=== PATIENT | female | born 1940 | race Caucasian/White ===

== ENCOUNTER 2016-10-03 21:36 | Observation (INO) | payer OTHER, MEDICARE ==
[~2016-10-03] VITALS: Ht 147.3 cm; Wt 31.8 kg
--- NOTE | 2016-10-03 22:20 | ED GENERAL ADULT ---
History of Present Illness General Chief Complaint: General Adult Stated Complaint: N/V, GENERAL WEAKNESS Source: patient Exam Limitations: no limitations Vital Signs & Intake/Output Vital Signs & Intake/Output Vital Signs Date Time Temp Pulse Resp B/P B/P Pulse O2 O2 Flow FiO2 Mean Ox Delivery Rate 10/033 96.7 116 18 145/90 93 Nasal 2.0L Cannula Allergies Coded Allergies: Penicillins (UNKNOWN 10/03/16) Sulfa (Sulfonamide Antibiotics) (UNKNOWN 10/03/16) Triage Note: PT BIBA FROM HOME. PT BEING SENT TO ED BY HOME HOSPICE NURSE FOR ADMISSION TO THIS HOSPITAL FOR HOSPICE CARE R/T STAGE 4 PANCREATIC CANCER. PRIOR TO ARRIVAL, PT COMPLAINED OF NAUSEA AND WAS MEDICATED BY EMS WITH ZOFRAN 4MG IVP. PT ALSO MEDICATED WITH 50MCG FENTNYL IVP. UPON ARRIVAL TO ED, PT DENIED HAVING ANY COMPLAINTS. Triage Nurses Notes Reviewed? yes Onset: Gradual Duration: week(s):, constant, continues in ED, getting worse Severity: severe Modifying Factors: Improves With: other (pain medication). HPI: Patient presents for evaluation of worsening pain and vomiting secondary to a history of pancreatic cancer. Patient has been unable to take most of her medications due to vomiting. She is currently on hospice at home. However she is unable to take her current medications and is now suffering worsening and severe abdominal pain. Past History Travel History Traveled to [place] past 21 day No Medical History Any Pertinent Medical History? see below for history Cardiovascular: hypertension Cancer(s): pancreatic cancer Surgical History Surgical History: non-contributory Psychosocial History What is your primary language Irish Tobacco Use: Refused to answer Family History Hx Contributory? No Review of Systems Review of Systems Constitutional: Reports: no symptoms. EENTM: Reports: no symptoms. Respiratory: Reports: no symptoms. Cardiovascular: Reports: no symptoms. GI: Reports: abdominal pain, nausea, vomiting. Genitourinary: Reports: no symptoms. Musculoskeletal: Reports: no symptoms. Skin: Reports: no symptoms. Neurological/Psychological: Reports: no symptoms. Hematologic/Endocrine: Reports: no symptoms. Immunologic/Allergic: Reports: no symptoms. All Other Systems: Reviewed and Negative Physical Exam Physical Exam General Appearance: see below Comments: Gen.: Cachectic appearing, well-developed, no acute respiratory distress. Head: Normocephalic, atraumatic. Eyes: Normal inspection bilaterally Ears: Normal inspection bilaterally Nose: Normal inspection Throat/mouth : Tacky mucosa Neck: Supple, full range of motion, no goiter Lungs: Quiet respirations Back: Normal range of motion Abdomen: Soft, diffuse tenderness, nondistended, normal bowel sounds Extremities: Normal range of motion grossly, equal radial pulses, no cyanosis clubbing or edema Neurologic: Cranial nerves grossly intact, speech is clear Skin: warm and dry Psychiatric: Calm, cooperative, no apparent delusions or hallucinations Core Measures ACS in differential dx? No CVA/TIA Diagnosis: No Severe Sepsis Present: No Septic Shock Present: No Progress Differential Diagnoses I considered the following diagnoses in my evaluation of the patient: Intractable pain and vomiting secondary to pancreatic cancer Plan of Care: Current Medications Sig/Danna Start time Last Medication Dose Stop Time Status Admin Acetaminophen 1,000 MG ONCE ONE 10/03 2229 UNVr (Ofirmev) 10/04 2243 N/A 1 UNIT (No Carrier) Levetiracetam 250 MG ONCE ONE 10/03 2229 UNVr (Keppra) 10/03 2230 Initial ED EKG: none Comments: 10/03/2016 10:49:42 PM patient's case discussed with case management and the hospitalist. Departure Departure Disposition: STILL A PATIENT Condition: Stable Clinical Impression Primary Impression: Pancreatic cancer Qualifiers: Pancreatic malignancy location: unspecified Qualified Code: C25.9 - Malignant neoplasm of pancreas, unspecified Secondary Impressions: Intractable abdominal pain Nausea and vomiting Qualifiers: Vomiting type: unspecified Vomiting Intractability: non-intractable Qualified Code: R11.2 - Nausea with vomiting, unspecified Referrals: KHARI LOPEZ,HARVINDER Pulliam (PCP/Family) Departure Forms: Customer Survey General Discharge Information Observation Note Spoke With: AGNES HUERTA MD Patient In: Non-ED OBS Care Area Rationale for Observation: My rational for observation is as follows patient has intractable pain secondary to pancreatic cancer. Nausea and vomiting have complicated her home care preventing her from receiving adequate pain medication for breakthrough pain. In order to control her pain the patient now requires intravenous pain relievers and to control her nausea and vomiting, intravenous antiemetics. Patient's decreased PO intake, her nausea and vomiting and her pain have debilitated her, preventing her from managing activities of daily living. The patient would also have great difficulty in outpatient treatment under the circumstances. This makes her very poor candidate for outpatient management, I feel she now requires hospitalization for management of her symptoms. Given this patient's overall prognosis, she will be comfort measures only. She should have evaluation by hospitalist. Critical Care Note Critical Care Note Critical Care Time: non-applicable
--- NOTE | 2016-10-03 23:24 | History & Physical ---
MARCIO LOPEZ,[facility] 10/03/16 2192: General Information and HPI MD Statement: I have seen and personally examined MELECIO SUAREZ and documented this H&P. The patient is a 76 year old F who presented with a patient stated chief complaint of Abdominal Pain Source of Information: patient, family, old records Exam Limitations: no limitations History of Present Illness: Ms Suarez is a 76 year old female with PMH of Stage IV pancreatic Cancer who presented to the ED complaining of Intractable Nausea, Vomiting and Abdominal Pain. The patient who is on home hospice states her symptoms began over the weekend and have since been present since. She has been unable to tolerate any PO intake. She states her pain is currently rated at a 6/10 in severity. Located in the epigastric area radiating to her flank. Daughter Dali was at bedside during the time of the clinical encounter. Allergies/Medications Allergies: Coded Allergies: Penicillins (UNKNOWN 10/03/16) Sulfa (Sulfonamide Antibiotics) (UNKNOWN 10/03/16) Compliance With Home Meds: UNKNOWN Past History Travel History Traveled to [place] past 21 day No Medical History Cardiovascular: hypertension Cancer(s): pancreatic cancer Surgical History Surgical History: non-contributory Past Family/Social History Psychosocial History Where do you live? Home Who Do You Live With? child Primary Language: Persian Functional Ability ADLs Independent: dressing, eating, toileting, bathing. Review of Systems Review of Systems Constitutional: Reports: weakness. Denies: chills, fever, malaise. Cardiovascular: Denies: chest pain, edema, orthopena, palpitations, peripheral edema. Respiratory: Denies: cough, hemoptysis, orthopnea, short of breath, sputum production, stridor. GI: Reports: abdominal pain, diarrhea, melena, nausea. Denies: bloating, distention , bowel incontinence, bloody stool, changes in stool, vomiting. Genitourinary: Denies: discharge, dysuria, hematuria, hesitation, nocturia. Musculoskeletal: Denies: back pain, gout, joint pain, joint swelling, muscle pain, muscle stiffness. Skin: Denies: change in skin color, change in hair/nails, dryness, erythema, jaundice. Exam & Diagnostic Data Last 24 Hrs of Vital Signs/I&O Vital Signs Date Time Temp Pulse Resp B/P B/P Pulse O2 O2 Flow FiO2 Mean Ox Delivery Rate 10/03 2307 96.7 10/03 2213 96.7 116 18 145/90 93 Nasal 2.0L Cannula Physical Exam General Appearance Alert, Oriented X3, Cooperative, Cachectic, On Supplementatl Oxygen. Skin No Rashes Skin Temp/Moisture Exam: Warm/Dry Sepsis Skin Exam (color): Normal for Ethnicity Cardiovascular Regular Rate, Normal S1, Normal S2 Lungs Clear to Auscultation Abdomen Normal Bowel Sounds, Soft, Tenderness on Light palpation Neurological Normal Speech Extremities No Edema Diagnostic Data EKG Results NA CXR Results NA Assessment/Plan Assessment: Ms Suarez is a 68-year-old female with past medical history of stage IV Pancreatic cancer who has been brought to the emergency department complaining of intractable nausea, vomiting, abdominal pain. Would admit the patient to general medicine floor for a 23 hour observation. #Abdominal Pain secondary to Metastatic Pancreatic cancer. Morphine 2 mg Q2 for pain. Ativan Q2 for anxiety Scopolamine patch Zofran as needed for Nausea. Gentle Hydration @ 75 ml/Hr Fentanyl patch Q 72. Ensure aggressive Bowel regimen, dulcolax and senna. #Diet. Clear liqud diet, to be advanced as tolerated to Regular As Ranked By This Provider Problem List: 1. Nausea and vomiting Qualifiers Vomiting type: unspecified Vomiting Intractability: non-intractable Qualified Code: R11.2 - Nausea with vomiting, unspecified 2. Intractable abdominal pain 3. Pancreatic cancer Qualifiers Pancreatic malignancy location: unspecified Qualified Code: C25.9 - Malignant neoplasm of pancreas, unspecified Core Measures/Miscellaneous Acute Coronary Syndrome ACS Diagnosis: No Cerebrovascular Accident CVA/TIA Diagnosis: No Congestive Heart Failure CHF Diagnosis: No Venous Thromboembolism VTE Risk Factors: Cancer/chemo/oth therapy No Mech VTE prophylaxis d/t: No contraindications No VTE Pharm Prophylaxis d/t: No contraindications VTE Diagnosis: No VTE Type: NONE VTE Confirmed by (Test): NONE Severe Sepsis Severe Sepsis Present: No Septic Shock Septic Shock Present: No Miscellaneous Documentation Attending Case Discussed With: AGNES HUERTA MD Primary Care Physician: HARVINDER LUCIA MD Patient sees these Specialists NA Level of Patient Care: General Medicine JUAN MORA 10/04/16 0006: Resident Review Statement Resident Statement: examined this patient, discussed with recruiting intern, agreed with recruiting intern, discussed with family, reviewed EMR data (avail), discussed with nursing , discussed with case mgmt, reviewed images, amended to note Other Findings: 76 years old woman with diagnosis of terminal pancreatic cancer, who was on home hospice, presented to the [facility] emergency room for intractable abdominal pain, nausea, vomiting. According to patient started about a week ago patient's abdominal pain progressively got worse and became Dannielle with intensity of 8 or 9 out of 10 she also developed nausea or vomiting. Patient denies any short of breath, chest pain, palpitation, new onset weakness or numbness, fever shaking chills. Review of system intractable abdominal pain and nausea vomiting. Vital signs within normal limits .Physical exam: Alert and oriented 3, everything not in acute distress; head and neck: Mucous membranes are dry; abdomen epigastric tenderness no guarding no rebound, the remainder of the physical exam was unremarkable. Assessment and plan 76-year-old woman with terminal stage cancer was admitted for hospice comfort care. * Admit to general medical floor as an observation plan to admit to hospice in a.m. * IV morphine 3 mg every 3 hours when necessary for moderate pain * Dulcolax suppository 10 mg daily when necessary * Zolpidem 2.5 mg by mouth at bedtime * Clear liquid diet as tolerated * Continue IV hydration * IV Zofran 4 mg every 6 as needed for nausea * Obtain EKG check for prolonged QT Comfort care AGNES HUERTA 10/04/16 0111: General Information and HPI Allergies/Medications Home Med list Amlodipine/Atorvastatin (Amlodipine-Atorvast 5-20 MG) 5 MG-20 MG TABLET 1 TAB PO DAILY HTN (Reported) Donepezil HCl 10 MG TABLET 1 TAB PO DAILY dementia (Reported) Folic Acid 1 MG TABLET 1 TAB PO DAILY supp (Reported) Levetiracetam (Keppra) 250 MG TABLET 1 TAB PO BID seizure (Reported) Metoprolol Tartrate 25 MG TABLET 1 HTAB PO BID HTN (Reported) Oxycodone HCl 5 MG TABLET 1 TAB PO BIDP PRN pain (Reported) Prochlorperazine Maleate 10 MG TABLET 1 TAB PO Q6 nausea (Reported) Attending MD Review Statement Attending Statement Attending MD Statement: examined this patient, discuss w/resident/PA/CUSTOMER CARE REPRESENTATIVE, agreed w/resident/PA/CUSTOMER CARE REPRESENTATIVE, discussed with family, reviewed EMR data (avail), reviewed images, amended to note Attending Assessment/Plan: CC: Intractable pain comfort care PMH: CVA, HTN, Sz, Ca pancreas with metastasis Hx obtained from patient's daughter. Patient was diagnosed with pancreatic cancer in Mar, 2016. In May she was evaluated but considered inoperable secondary to the metastasis. She received 2 cycles of Chemo at [facility] but she was not tolerating it well so they stopped it and she was discharged home on hospice. She was ambulating, eating well, living alone and at her usual functionality until 1 week. Since one week the daughter and hospice nurse have observed marked decline in her functionality. Since morning, she has intractable vomiting and could not keep any pain meds down. So her daughter brought her to ER for vomiting and intractable pain. Off note, while undergoing EGD in hospital, she suffered perforation and was admitted in ICU. During that stay she suffered demand ischemia, and was started on Metoprolol. Vitals: unremarkable. On Exam: cachectic, pale, lying comfortably. CVS: s1 s2 rrr. RS: clear to auscultate. Abdo: tender, pulsatile, decreased bowel sounds. no pedal edema, peripheral pulses normal A and P # metastatic pancreatic cancer # intractable pain # recurrent vomiting # Hx HTN, CVA, Sz - place in observation on general medicine floor for intractable pain - Continue PRN morphine for pain control 1 to 4 mg q 2 to 4 hour, continue fentanyl patch 50 microgram Q 72 hr - continue PRN Zofran and compazine for N/ V - vitals Q daily - consult Hospice for in-house hospice evaluation - advance diet for comfort as tolerated. - DNR DNI - di Bustillosra PO, d/c metoprolol, amlodepine, donepezil, creon - continue bowel regimen
[2016-10-04] MEDS ORDERED: FOLIC ACID1 M1 PO (00:57)
[2016-10-04] MEDS ORDERED: DONEPEZIL HCL10 M1 PO (00:57)
[2016-10-04] MEDS ORDERED: OXYCODONE HCL5 M1 PO (00:57)
[2016-10-04] MEDS ORDERED: PROCHLORPERAZIN10 MG PO (00:58)
[2016-10-04] MEDS ORDERED: KEPPRA250 M1 PO (00:59)
[2016-10-04] MEDS ORDERED: METOPROLOL TART25 M1 PO (01:00)
[2016-10-04] MEDS ORDERED: AMLODIPINE-ATO1 EAC7 PO (01:00)
[2016-10-04 02:40] VITALS: BP 114/80
--- NOTE | 2016-10-04 07:18 | PN- Housestaff ---
WILFRED LOPEZ,[facility] 10/04/16 0718: Subjective Follow-up For: Stage IV pancreatic cancer Cancer related pain with intaractable nausea & vomiting Subjective: I saw and examined the patient today morning She feels better, denies any nausea, vomiting, pain overnight. Reports slept well. Review of Systems Constitutional: Reports: see HPI. Objective Last 24 Hrs of Vital Signs/I&O Vital Signs Date Time Temp Pulse Resp B/P B/P Pulse O2 O2 Flow FiO2 Mean Ox Delivery Rate 10/04 0240 98.0 76 16 114/80 99 Nasal 2.0L Cannula 10/04 0116 96.8 85 12 141/86 98 Nasal 2.0L Cannula 10/03 2307 96.7 10/03 2213 96.7 116 18 145/90 93 Nasal 2.0L Cannula Intake & Output 10/04 0800 10/04 0000 10/03 1600 Intake Total 175 Output Total Balance 175 Intake, IV 75 Intake, Oral 100 Patient 31.751 kg 31.751 kg Weight Weight Reported by Patient Measurement Method Physical Exam General Appearance: Alert, Oriented X3, Cooperative Skin: No Rashes, No Breakdown HEENT: Atraumatic, PERRLA, EOMI Neck: Supple Cardiovascular: Normal S1, Normal S2 Lungs: Clear to Auscultation, Normal Air Movement Abdomen: pancreatic mass palpable, extensively tender to palpate Neurological: Normal Speech Assessment/Plan Assessment: Patient is a 68-year-old female with past medical history of stage IV Pancreatic cancer who has been brought to the emergency department complaining of intractable nausea, vomiting, abdominal pain. Continue to monitor under observation Abdominal Pain secondary to Metastatic Pancreatic cancer. Morphine 2 mg Q2 for pain. Ativan Q2 for anxiety Scopolamine patch Zofran as needed for Nausea. Gentle Hydration @ 75 ml/Hr Fentanyl patch Q 72. Ensure aggressive Bowel regimen, dulcolax and senna. Admitted to inpatient hospice service today afternoon. Problem List: 1. Pancreatic cancer 2. Intractable abdominal pain 3. Nausea and vomiting Pain Ratin Pain Location: abdomen Pain Goal: Pain 4 or less Pain Plan: n/a Tomorrow's Labs & Rationales: none MAKAYLA LOPEZ,JONNY 10/04/16 1203: Attending MD Review Statement Attending Statement Attending MD Statement: examined this patient, discuss w/resident/PA/CHEMICAL ENGINEERING INTERN, agreed w/resident/PA/CHEMICAL ENGINEERING INTERN, discussed with family, reviewed EMR data (avail), discussed with nursing, discussed with case mgmt, amended to note Attending Assessment/Plan: Patient seen and examined. Extremities lethargic and chronically ill-looking. Denies any pain at present. Patient Had episodes of vomiting while being evaluated. Patient's daughter is unaware of any history of seizures or seizure episodes. Patient will be converted into inpatient hospice And Goals of care will be symptom control only. Patient's daughter is in agreement with this plan. Recommendations: -Discharge from the general medical service and placed patient on inpatient hospice. -Symptom controlled using the hospice pathway.
--- NOTE | 2016-10-04 11:22 | Patient Discharge Instructions ---
Discharge Instructions General Discharge Information You were seen/treated for: Stage IV pancreatic cancer Acute Coronary Syndrome Inclusion Criteria At DC or during hospital stay patient has or had the following: ACS DIAGNOSIS No Discharge Core Measures Meds if any: Prescribed or Continued at Discharge Meds if any: NOT Prescribed or Continued at Discharge Congestive Heart Failure Inclusion Criteria At DC or during hospital stay patient has or had the following: CHF DIAGNOSIS No Discharge Core Measures Meds if any: Prescribed or Continued at Discharge Meds if any: NOT Prescribed or Continued at Discharge Cerebrovascular accident Inclusion Criteria At DC or during hospital stay patient has or had the following: CVA/TIA Diagnosis No Discharge Core Measures Meds if any: Prescribed or Continued at Discharge Meds if any: NOT Prescribed or Continued at Discharge Venous thromboembolism Inclusion Criteria VTE Diagnosis No VTE Type NONE VTE Confirmed by (Test) NONE Discharge Core Measures - Per Current guidelines, there needs to be overlap - treatment for the first 5 days of Warfarin therapy. - If discharged on Warfarin prior to 5 days of - overlap therapy, the patient will need to be - assessed for post discharge needs including - *Post discharge parental anticoagulation - *Warfarin and/or parental anticoagulation education - *Follow up date to check INR post discharge At least 5 days overlap therapy as Inpatient No Meds if any: Prescribed or Continued at Discharge Note: Overlap Therapy is Warfarin and Anticoagulant Meds if any: NOT Prescribed or Continued at Discharge
== END 2016-10-04 11:38 | disposition hospice, home (50) ==
LOC: ERH 21:36 → ERHI 22:50 → ENRESERV 23:50 → 2NA 10-04 01:29
PROVIDERS: ADMIT Internal Medicine
DX: C25.9 Malignant neoplasm of pancreas, unspecified (principal); Z51.5 Encounter for palliative care; C78.7 Secondary malignant neoplasm of liver and intrahepatic bile duct; F41.9 Anxiety disorder, unspecified; I10 Essential (primary) hypertension; R64 Cachexia; Z86.73 Personal history of transient ischemic attack (TIA), and cerebral infarction without residual deficits; J45.909 Unspecified asthma, uncomplicated
CPT/HCPCS: 6030; 96374; 96375; G0378; J0131; J1650; J1953; J2405; J2550; J7042

== ENCOUNTER 2016-10-04 11:39 | Inpatient (IN) | payer OTHER ==
[~2016-10-04 11:39] MED LIST: AMLODIPINE-ATO1 EAC7 PO; DONEPEZIL HCL10 M1 PO; FOLIC ACID1 M1 PO; KEPPRA250 M1 PO; METOPROLOL TART25 M1 PO; OXYCODONE HCL5 M1 PO; PROCHLORPERAZIN10 MG PO
--- NOTE | 2016-10-04 16:15 | NUR ---
PT ADMITTED TO HOSPICE IN PATIENT SERVICE, PT ALERT, SKIN INTACT, BUTTOCKS AND BACK RED, SIZEWISE BED ORDERED, PT ON O2 AT 1 LITER VIA N/C. SEE MAR FOR MEDS GIVEN, BED ALARM PLACED FOR SAFETY, DAUGHTER AT BEDSIDE, PLAN OF CARE AND MEDS REVIEWED. SHE VERBALIZES UNDERSTANDING
--- NOTE | 2016-10-04 17:09 | NUR ---
PT ALERT BUT CONFUSED, STATING PAIN AT TIMES TO RIGHT LOWER ABD AND LOWER BACK AREA. REPOSITIONED AND IV MORPHINE GIVEN PER EMAR ORDERED. PT'S DAUGHTER HUMBERTO AT BEDSIDE. ON 1L NC, NO SOB. AWAITING SIZEWISE BED ARRIVAL-SKIN INTACT-BUTTOCKS RED BUT BLANCHABLE. IV SITE TO [facility] IS PREHOSPITAL- INTACT-GOOD BLOOD RETURN AND FLUSHES WITHOUT DIFFICULTY OR PAIN. OK TO LEAVE IV SITE IN PLACE FOR NOW. BED ALARM IN PLACE. PO CARE GIVEN AND SIPS OF WATER/GINGERALE OFFERED AND TAKEN. WILL CONTINUE TO MONITOR
--- NOTE | 2016-10-04 19:31 | History & Physical ---
General Information and HPI History of Present Illness: Patient is a 76 year old female with history of Stage IV pancreatic Cancer. She had been on hospice care at home but due to persistent nausea vomiting was brought to the emergency room for evaluation. Due to her intractable symptoms she is admitted to the inpatient hospice service for further symptom control. Patient and daughter wish to keep her CODE STATUS is don't resuscitate/DO NOT INTUBATE. Whether the plan of care will be to provide comfort only. Allergies/Medications Allergies: Coded Allergies: Penicillins (UNKNOWN 10/03/16) Sulfa (Sulfonamide Antibiotics) (UNKNOWN 10/03/16) Home Med list Amlodipine/Atorvastatin (Amlodipine-Atorvast 5-20 MG) 5 MG-20 MG TABLET 1 TAB PO DAILY HTN (Reported) Donepezil HCl 10 MG TABLET 1 TAB PO DAILY dementia (Reported) Folic Acid 1 MG TABLET 1 TAB PO DAILY supp (Reported) Levetiracetam (Keppra) 250 MG TABLET 1 TAB PO BID seizure (Reported) Metoprolol Tartrate 25 MG TABLET 1 HTAB PO BID HTN (Reported) Oxycodone HCl 5 MG TABLET 1 TAB PO BIDP PRN pain (Reported) Prochlorperazine Maleate 10 MG TABLET 1 TAB PO Q6 nausea (Reported) Compliance With Home Meds: GOOD Past History Travel History Traveled to [place] past 21 day No Medical History Blood Transfusion Hx: No Neurological: CVA EENT: L EYE SHELF BUILT Cardiovascular: hypertension Respiratory: asthma Gastrointestinal: SPLEENECTOMY Hepatic: STENT TO BILE DUCT Renal: NONE Musculoskeletal: L KNEE REPLACEMENT Psychiatric: anxiety Endocrine: NONE Blood Disorders: NONE Cancer(s): pancreatic cancer, W/METS TO LIVER ENGINE BOSS/Reproductive: NONE History of MRSA: No History of VRE: No History of CDIFF: No Isolation History: Standard Surgical History Surgical History: non-contributory Past Family/Social History Psychosocial History Who Do You Live With? child Primary Language: Mauritian Functional Ability ADLs Independent: dressing, eating, toileting, bathing. Review of Systems Review of Systems Constitutional: Reports: see HPI. Exam & Diagnostic Data Last 24 Hrs of Vital Signs/I&O Vital Signs Date Time Temp Pulse Resp B/P B/P Pulse O2 O2 Flow FiO2 Mean Ox Delivery Rate 10/04 1600 Nasal 1.0L Cannula Intake & Output 10/04 1600 10/04 0800 05/17 0000 Intake Total 100 Output Total Balance 100 Intake, Oral 100 Physical Exam General Appearance Oriented X3, Cooperative, Moderate Distress Skin No Rashes, No Breakdown, No Significant Lesion Skin Temp/Moisture Exam: Warm/Dry HEENT Atraumatic, PERRLA, Mucous Membr. moist/pink Cardiovascular Regular Rate, Normal S1, Normal S2 Lungs Clear to Auscultation Abdomen Normal Bowel Sounds, Soft, No Tenderness Extremities No Edema Assessment/Plan Assessment: Recommendations: -Admit to the hospitalist service. -Symptom control via the hospice pathway. -Comfort measures only. As Ranked By This Provider Problem List: 1. Pancreatic cancer 2. Nausea and vomiting Core Measures/Miscellaneous Acute Coronary Syndrome ACS Diagnosis: No Cerebrovascular Accident CVA/TIA Diagnosis: No Congestive Heart Failure CHF Diagnosis: No Venous Thromboembolism VTE Risk Factors: No Risk Factors [facility] prophylaxis d/t: VTE low risk No VTE Pharm Prophylaxis d/t: VTE low risk VTE Diagnosis: No VTE Type: NONE VTE Confirmed by (Test): NONE Severe Sepsis Severe Sepsis Present: No Septic Shock Septic Shock Present: No Miscellaneous Documentation Attending Case Discussed With: JONNY BENAVIDES M.D Primary Care Physician: HARVINDER LUCIA MD Patient sees these Specialists None Level of Patient Care: Hospice
--- NOTE | 2016-10-05 02:53 | NUR ---
PT REPORTS 8/10 PAIN, CALLED MD BRADLEY FOR ONE TIME ORDER OF MORPHINE IV. COMFORT CARE AND REPOSITIONING PROVIDED. WILL CONTINUE TO MONITOR THIS SHIFT.
--- NOTE | 2016-10-05 08:00 | NUR ---
PT RESTING ON SIZEWISE MATTRESS. FLACC SCORE 5, MEDICATED WITH MORPHINE PER EMAR. PT ABLE TO RESPOND TO VERBAL AND TACTILE STIMULI. ON 1L NC. PT INCONTINENT OF URINE. TURNED & REPOSITIONED, TOLERATED WELL. SKIN INTACT. SKIN CARE PROVIDED. NO FAMILY AT BEDSIDE. WILL CONTINUE TO MONITOR.
--- NOTE | 2016-10-05 12:00 | NUR ---
PT LAYING IN BED COMFORTABLY. RR 18, UNLABORED, NO CONGESTION NOTED. ON 1LNC. PT TURNED & REPOSITIONED, TOLERATED WELL. SKIN CARE & ORAL CARE PROVIDED. PT REMAINS RESPONSIVE TO VERBAL AND TACTILE STIMULI. ABLE TO ANSWER QUESTIONS QUIETLY. DAUGHTER AT BEDSIDE. WILL CONTINUE TO MONITOR.
--- NOTE | 2016-10-05 13:19 | PN- Att Addend ---
Attending Addendum Attending Brief Note Patient seen and examined. Lying in bed. Extremely lethargic. Not in any ofwith distress. No issues overnight reported by nursing staff. No episodes of seizures overnight. Vital Signs Date Time Temp Pulse Resp B/P B/P Pulse O2 O2 Flow FiO2 Mean Ox Delivery Rate 10/05 0800 Nasal 1.0L Cannula 10/05 0000 Nasal 1.0L Cannula 10/04 1600 Nasal 1.0L Cannula Gen. appearance: Cachectic. Heart: S1-S2 regular. Lungs: Clear bilaterally. Abdomen: Soft, nontender Current Medications Sig/Danna Start time Last Medication Dose Route Stop Time Status Admin Bisacodyl 10 MG DAILY NEEDED PRN 10/04 1300 AC OR Glycerin/Mineral Oil 1 SOTO Q8P PRN 10/04 1300 AC TOP Glycopyrrolate 400 MCG Q4 10/04 1400 AC 10/05 IV 1308 Haloperidol 0.5 MG Q2 HRS NEEDED PRN 10/04 1315 AC PO Lorazepam 0.5 MG Q2 HRS NEEDED PRN 10/04 1315 AC 10/05 IV 1113 Morphine Sulfate 4 MG ONCE ONE 10/05 0300 DC 10/05 IV 10/05 0301 0249 Morphine Sulfate 4 MG Q2 HRS NEEDED PRN 10/04 1615 AC 10/05 IV 1308 Morphine Sulfate 4 MG Q3P PRN 10/04 1415 DC 10/04 IV 1412 Morphine Sulfate 2 MG [id number] PRN 10/04 1300 CAN IV Ondansetron HCl 4 MG Q6P PRN 10/05 0830 AC IV Scopolamine HBr 1 PAT Q72 10/07 1000 AC TOP Stage IV pancreatic cancer. -Continue current comfort measures only. -Provide family support as needed.
--- NOTE | 2016-10-05 14:33 | Event Note ---
Event Note Event Note: I was notified by nursing staff that patient was pronounced at 1405 today. When I evaluated the patient her daughter was present at the bedside. Patient was not hypotensive. She had no spontaneous activity. She had no response to verbal or tactile stimuli. She had no papillae light reflex, pupils were fixed and dilated. She was not breathing and lung sounds as well as heart sounds were not audible. Plan: - certificate completed. -Emotional support provided to daughter at the bedside.
--- NOTE | 2016-10-05 14:36 | Discharge Summary ---
Visit Information Visit Dates Admission Date: 10/04/16 Discharge Date: 10/05/2016. Hospital Course Course Attending Physician: JONNY BENAVIDES M.D Primary Care Physician: HARVINDER LUCIA MD Hospital Course: Patient was transferred to hospice service yesterday and comfort measures provided via the hospice pathway. This afternoon at 2:05 PM she was found unresponsive with fixed dilated pupils by nursing staff. I examined her and found her warm to touch. Pupils were fixed and dilated. There iwere no audible cardiac or pulmonary sounds. Patient was pronounced and emotional support provided to the daughter at the bedside. Allergies: Coded Allergies: Penicillins (UNKNOWN 10/03/16) Sulfa (Sulfonamide Antibiotics) (UNKNOWN 10/03/16) Disposition Summary Disposition Principal Diagnosis: Stage IV pancreatic cancer. Additional Diagnosis: . Discharge Disposition: patient Discharge Instructions General Discharge Information Code Status: Hospice Patient's Diet: Not applicable Patient's Activity: Not applicable Follow-Up Instructions/Appts: Not applicable Copies To: HARVINDER LUCIA MD Attending MD Review Statement Documenting Attending: JONNY BENAVIDES M.D
--- NOTE | 2016-10-05 16:11 | NUR ---
AT 1400, THIS RN ENTERED PTS ROOM & ASSESSED PT. PT HAS NO SPONTANEOUS RESPIRATIONS, NO HEART RATE PRESENT FOR 60 SECONDS, AND PUPILS ARE FIXED & NONREACTIVE TO LIGHT. PT PRONOUNCED AT 1405. COMFORT CART ORDERED, SHEEP BONER AT BEDSIDE. CHARGE NURSE, NURSING BACON SKINNER, ADMITTING, AND ATTENDING MD MADE AWARE. HOSPICE CALLED WELL. THIS RN SPOKE TO [facility]. [facility] DECLINED ANY DONATIONS FROM PT. FAMILY AWARE AND AT BEDSIDE. EMOTIONAL SUPPORT GIVEN. REPORT PASSED TO NEXT SHIFT RN, WILL CONTINUE TO MONITOR.
--- NOTE | 2016-10-05 16:47 | NUR ---
POST MORTEM CARE PROVIDED & LEE PAUL CALLED FOR.
== END 2016-10-05 14:05 | disposition expired | DRG 436 ==
LOC: 2NA 11:39
PROVIDERS: ADMIT Internal Medicine
DX: C25.9 Malignant neoplasm of pancreas, unspecified (principal); C78.7 Secondary malignant neoplasm of liver and intrahepatic bile duct; Z51.5 Encounter for palliative care; Z66 Do not resuscitate; I10 Essential (primary) hypertension
CPT/HCPCS: J2270; J2405